=== PATIENT | female | born 1985 | race Caucasian/White ===

== ENCOUNTER 2019-02-18 05:27 | Inpatient (IN) | payer MEDICAID ==
[~2019-02-18] VITALS: Ht 162.6 cm; Wt 74.7 kg
[~2019-02-18 05:27] MED LIST: HYDR-3601 PO; IBUP800T48 PO; PNV11TAB PO
[2019-02-18 05:47] VITALS: BP 108/71; PULSE 71; RESP 18
[2019-02-18 06:04] VITALS: Ht 162.6 cm; Wt 74.7 kg
[2019-02-18] MEDS ORDERED: LACTATED RINGER'S 1,000 ML IV SCH (06:42)
[2019-02-18] MEDS ORDERED: CEFAZOLIN 2 GM/50 ML (PMX) 50 ML IVPB SCH (07:00)
[2019-02-18] MEDS ORDERED: CARBOPROST 250 MCG INJ IM PRN ×2 (07:00→12:30)
[2019-02-18] MEDS ORDERED: OXYTOCIN 30 UNITS/LR 500 ML IV PRN ×2 (07:00→12:30)
[2019-02-18] MEDS ORDERED: MISOPROSTOL 200 MCG TAB PR PRN ×2 (07:00→12:30)
[2019-02-18] MEDS ORDERED: METHYLERGONOVINE 0.2 MG INJ IM PRN ×2 (07:00→12:30)
--- NOTE | 2019-02-18 07:26 | PREAC ---
Date/Time of Note Date/Time of Note DATE: 02/18/19 TIME: 07:24 Anesthesia Eval and Record Evaluation Time Pre-Procedure Interview DATE: 02/18/19 TIME: 07:24 Age 33 Sex female NPO: 8 hrs Preoperative diagnosis IUP, twine Planned procedure Csection Past Medical History Past Medical History: Includes GI: Obesity : : Surgery & Anesthesia Issues No known issue Meds Anticoagulation: No Beta Jesse within 24 hr: No Reason Beta Jesse not given: Pt. not on B-Jesse Reported Medications [id number] ( 19) 1 Each Tablet, 1 TAB PO DAILY, TAB 02/18/19 Current Medications Lactated Ringer's 1,000 ml @ 125 mls/hr Q8H IV Last administered on 02/18/19at 06:25; Admin Dose 125 MLS/HR; Start 02/18/19 at 06:42 Cefazolin Sodium/ Dextrose 50 ml @ 100 mls/hr ONCE IVPB ; Start 02/18/19 at 07:00 Oxytocin/Lactated Ringer's 500 ml @ 125 mls/hr POST IV ; Start 02/18/19 at 07:00 Oxytocin/Lactated Ringer's 500 ml @ 0 mls/hr ONCE PRN IV .VAGINAL BLEEDING; Start 02/18/19 at 07:00 Methylergonovine Maleate (Methergine) 0.2 mg ONCE PRN IM .VAGINAL BLEEDING; Start 02/18/19 at 07:00 Carboprost Tromethamine (Hemabate) 250 mcg ONCE PRN IM .VAGINAL BLEEDING; Start 02/18/19 at 07:00 Misoprostol (Cytotec) 1,000 mcg ONCE PRN OK .VAGINAL BLEEDING; Start 02/18/19 at 07:00 Meds reviewed: Yes Allergies Coded Allergies: No Known Allergy (Unverified , 02/18/19) Allergies Reviewed: Yes Labs/Studies Labs Reviewed: Reviewed by anesthesiologist Result Diagram: 02/18/19 0625 Laboratory Tests 02/18/19 06:25 Blood Bank Test 02/18/19 06:25 Blood Type O POSITIVE Rh Immune Globulin Candidate NO test: Positive Studies: ECG Pre-procedure Exam Last vitals Vital Signs Date Temp Pulse Resp B/P (MAP) Pulse Ox O2 O2 Flow FiO2 Time Delivery Rate 02/18/19 98.5 71 18 108/71 Room Air 05:47 (83) Airway: Adequate mouth opening, Adequate thyromental dist Mallampati: Mallampati II Teeth: Normal Lung: Normal Heart: Normal ASA Physical Status ASA physical status: 3 Emergency: None Planned Anesthetic Neuraxial: Spinal Planned Pain Management Sub-arachniod narcotics, Parenteral pain med Pre-operative Attestations Prior to commencing anesthesia and surgery, the patient was re-evaluated, there was verification of: *The patient's identity *The results of appropriate recent lab work and preoperative vital signs *The above evaluation not changing prior to induction *Anesthetic plan, risk benefits, alternative and complications discussed with patient/family; questions answered; patient/family understands, accepts and wishes to proceed. RANDALL SHAH MD Feb 18, 2019 07:26
--- NOTE | 2019-02-18 07:37 | TRIAGE ---
OB Triage Datetime Report Generated by CPN: 02/18/2019 07:36 Datetime: 02/18/2019 07:15 Assessment Type: Admission Assessment Vaginal Bleeding: None Maternal Assessment Level of Consciousness: Keenly Alert, Responsive Headache: Denies Blurred Vision: No Respiratory Effort: Unlabored; Regular Rhythm; Equal Expansion Breath Sounds, Left: Clear and Equal Breath Sounds, Right: Clear and Equal Nausea/Vomiting: Denies RUQ Epigastric Pain: Denies Lower Extremities Edema: None Degree: None Upper Extremities Edema: None Degree: None Facial Edema: None Fall Risk Assessment History of Falling: (0) No Secondary Diagnosis: (0) No Ambulatory Aid: (0) Bedrest/Nurse Assist IV Therapy: (20) Yes (Annotations: INFUSING LR @ BOLUS RATE.) Gait: (0) Normal/Bedrest/Immobile Mental Status: (0) Oriented to Own Ability Fall Score: 20 Fall Risk Score Definition: No Risk: No action required Pain Assessment Pain Scale: 8 Pain Presence: Intermittent Pain Type: Contraction Pain Location: Abdomen Membrane Status: Ruptured Membranes Ruptured Date/Time: 02/18/2019 05:00 Datetime: 02/18/2019 07:00 Membranes Rupture Method: Spontaneous Datetime: 02/18/2019 05:55 Stage of : Labor Datetime: 02/18/2019 05:52 Time of Arrival: 02/18/2019 05:18 EGA: 35.5 Arrived By: Wheelchair Arrived From: Home Chief Complaint: SROM Movement: Present Contractions: Irregular Time Contractions Began: 02/17/2019 23:00 Contractions: Every 10 minutes Rupture of Membranes: Ruptured Vaginal Bleeding: None Vaginal Discharge: Denies Recent Sexual Intercouse: Denies Abdominal Trauma: Not Applicable Patient Complaints: Other Time Provider Notified: 02/18/2019 05:55 Provider Notified: Dr. Hooks Initial Plan: CEFM, VE Datetime: 02/18/2019 05:49 Vaginal Exam Dilatation (cms): 3.0 Effacement (%): 80 Station: -2 Exam By: Connie Handy RN Membrane Status: Ruptured Membranes Ruptured Date/Time: 02/18/2019 05:00 Vaginal Bleeding: None Cervix, Consistency: Soft Cervix, Position: Posterior Presentation 'A': Cephalic Datetime: 02/18/2019 05:47 Stage of : OB Triage Assessment Type: Triage Maternal Assessment Level of Consciousness: Keenly Alert, Responsive DTR's/Clonus: DTRs 2+; No Clonus Headache: Denies Blurred Vision: No Respiratory Effort: Unlabored; Regular Rhythm; Equal Expansion Breath Sounds, Left: Clear and Equal Breath Sounds, Right: Clear and Equal Nausea/Vomiting: Denies RUQ Epigastric Pain: Denies Lower Extremities Edema: None Degree: None Upper Extremities Edema: None Degree: None Facial Edema: None Temperature Route: Oral Fall Risk Assessment History of Falling: (0) No Secondary Diagnosis: (0) No Ambulatory Aid: (0) Bedrest/Nurse Assist IV Therapy: (0) No Gait: (0) Normal/Bedrest/Immobile Mental Status: (0) Oriented to Own Ability Fall Score: 0 Fall Risk Score Definition: No Risk: No action required Pain Assessment Pain Scale: 7 Pain Presence: Intermittent Pain Type: Cramping Pain Location: Abdomen Datetime: 02/18/2019 05:41 Stage of : OB Triage
[2019-02-18] MEDS ORDERED: OXYTOCIN 30 UNITS/LR 500 ML BAG IV ONE (07:46)
[2019-02-18] MEDS ORDERED: morphine SULFATE/PF (10 MG/10 ML) INJ ONE (07:46)
[2019-02-18] MEDS ORDERED: OXYTOCIN 10 UNIT INJ ONE (07:47)
[2019-02-18] MEDS ORDERED: ONDANSETRON 4 MG INJ ONE (07:47)
[2019-02-18] MEDS ORDERED: LACTATED RINGER'S 1,000 ML IV ONE (08:00)
--- NOTE | 2019-02-18 08:10 | HP ---
Date/Time of Note Date/Time of Note DATE: 02/18/19 TIME: 08:06 OB - History Hx of Present Free Text/Dictation 33 y.o. with a twin at 35w5d came in with spontaneous rupture of membranes and in active labor and an initial exam of 80%/3 cm. On US the twins are vtx/breech. Estimated Due Date: Mar 20, 2019 : 2 Para: 1 Care: Good Care Ultrasounds: Normal mid trimester US Obstetrical Complications: None Medical Complications: None Past Family/Social History * Past Medical, Surgical, Family and Obstetric Histories reviewed from chart. Blood Type: O+ Rubella: immune RPR/VDRL: Negative GBS Status: Unknown HBsAG: Negative OB Admission Exam Vital Signs Vital Signs Vital Signs Date Temp Pulse Resp B/P (MAP) Pulse Ox O2 O2 Flow FiO2 Time Delivery Rate 02/18/19 98.5 71 18 108/71 Room Air 05:47 (83) Physical Exam HEENT: WNL Heart: Rhythm Normal Lungs: Clear Abdomen: WNL Extremities: Normal Reflexes: Normal Cervical Dilatation: 3cm Effacement: Other (80%) Station: -2 Membranes: Ruptured Amniotic Fluid: Clear Heart Rate: 140's Accelerations: Accelerations Present Decelerations: No Decelerations Varibility: Moderate Contractions on Admission: 6-10 Minutes Apart Intensity: Moderate Last 72 hours Lab Results CBC & BMP 02/18/19 06:25 OB Assessment/Plan Reason for admission: active labor, section Other Assessment: Twins vertex/breech Plan: Section NUVIA MORTON MD Feb 18, 2019 08:10
[2019-02-18] MEDS ORDERED: PHENYLephrine 10 MG INJ ONE (08:18)
[2019-02-18] MEDS ORDERED: FENTAnyl 50 MCG/ML VIAL ONE (08:29)
[2019-02-18] MEDS ORDERED: MIDAZOLAM 1 MG/ML 2 ML INJ ONE (08:48)
--- NOTE | 2019-02-18 09:21 | PAC ---
Date/Time of Note Date/Time of Note DATE: 02/18/19 TIME: 09:20 Post-Anesthesia Notes Post-Anesthesia Note Last documented vital signs Vital Signs Date Temp Pulse Resp B/P (MAP) Pulse Ox O2 O2 Flow FiO2 Time Delivery Rate 02/18/19 98.5 71 18 108/71 Room Air 05:47 (83) Activity: WNL Respiratory function: WNL Cardiovascular function: WNL Mental status: Baseline Pain reasonably controlled: Yes Hydration appropriate: Yes Nausea/Vomiting absent: Yes Comments BP:112/56, P:78, Spo2:100%, T:98,9 RANDALL SHAH MD Feb 18, 2019 09:21
[2019-02-18] MEDS ORDERED: ONDANSETRON 4 MG INJ IV PRN (09:30)
[2019-02-18] MEDS ORDERED: DIPHENHYDRAMINE 50 MG INJ IV PRN (09:30)
[2019-02-18] MEDS ORDERED: NALOXONE (0.4 MG/ML) INJ IV PRN (09:30)
[2019-02-18] MEDS ORDERED: morphine 2 MG INJ IV PRN (09:30)
[2019-02-18] MEDS: OXYTOCIN 30 UNITS/LR 500 ML IV SCH ×4 (10:05→16:59)
[2019-02-18] MEDS ORDERED: LANOLIN HPA 1 PKT TOP PRN (12:30)
[2019-02-18] MEDS ORDERED: NACL 0.9% 3 ML SYG IV SCH (12:30)
[2019-02-18] MEDS ORDERED: HYDROCODONE/APAP (5/325) TAB PO PRN (12:30)
--- NOTE | 2019-02-18 13:12 | OPR ---
Operative Report Planned Procedure Free Text/Dictation Primary for IUP at 36 weeks, twins, spontaneous rupture of membranes, active labor, vertex/breech. Procedure date Feb 18, 2019 Procedure(s) Primary low transverse . Performed by see signature line Chess Instructor: DAKOTA DUTTON MD Anesthesiologist: RANDALL SHAH MD Pre-procedure diagnosis IUP at 36 weeks, , premature rupture of membranes, active labor, vertex/breech presentation. [id number] Anesthesia Type: Xpaay3e spinal Post-Procedure Post-procedure diagnosis Same Findings Twin A: baby boy weighing 2645 grams or 5# 13 oz, 19.5" long, and with Apgars of 8/9. Twin B: baby boy weighing 2880 grams or 6# 6 oz, 19" long, and with Apgars of 8/9. Estimated Blood Loss: 400 - 500 mls Specimen(s) none Grafts/Implant(s) none Complication(s) none Pt Condition post procedure: stable Disposition: PACU Procedure Description Under satisfactory spinal anesthesia, the patient was prepped and draped and placed in a supine position, tilted to the left. Pfannenstiel incision was made, carried through the subcutaneous tissue. Bleeders brought under control with electrocautery. Fascia incised to the length of the incision. Rectus muscles from the fascia, divided midline. Peritoneum exposed and entered manually and stretched open with the surgeon's hands. Transverse incision was made in the lower segment of the uterus. Amniotic sac ruptured. Clear amniotic fluid noted. Twin A was vertex and delivered using gentle fundal pressure to deliver the head and then the rest of the body. The mouth and nares were bulb suctioned. The cord was doubly clamped and cut after 30 seconds. The baby was brought to the warmer and the team for immediate attention. Twin B was breech but as the uterus had yet to contract I was able to turn the baby over and deliver it vertex, as I did the 1st baby. The mouth and nares were bulb suctioned. The cord was doubly clamped after 30 seconds and cut and the baby was brought to the warmer. Cord blood x 2 was collected. The placenta was delivered manually intact. Uterus was covered in a moist lap and the uterine cavity was cleaned with a dry lap. Uterus closed in 2 layers using #1 chromic in continuous fashion. Peritoneal cavity irrigated with warm saline. Sponge, needle and instrument count reported to be correct. Abdominal peritoneum closed with 2-0 Chromic continuously. Rectus muscle approximated with the same suture. Fascia closed with 0-Vicryl.from each lateral edge to midline with overlap at the midline. The subcutaneous tissue was irrigated and closed with 2-0 Chromic and skin was closed with 3-0 Monocryl in a subcuticular stitch. Steristrips with Mastosol were placed. Estimated blood loss 500 mL. Urine was clear. NUVIA MORTON MD Feb 18, 2019 13:11
[2019-02-18 15:45] VITALS: BP 107/64; PULSE 74; RESP 16
[2019-02-18] MEDS: KETOROLAC 30 MG INJ IV PRN ×2 (16:57→23:29)
[2019-02-18 17:30] VITALS: BP 107/64; PULSE 74; RESP 18
[2019-02-18 20:30] VITALS: BP 113/56; PULSE 77; RESP 18
[2019-02-19 00:05] VITALS: BP 106/56; PULSE 82; RESP 18
[2019-02-19 03:46] VITALS: BP 96/54; PULSE 80; RESP 17
[2019-02-19] MEDS: LACTATED RINGER'S 1,000 ML IV SCH ×3 (05:10→15:00)
[2019-02-19] MEDS: KETOROLAC 30 MG INJ IV PRN (05:16)
[2019-02-19 08:00] VITALS: BP 93/51; PULSE 69; RESP 18
[2019-02-19] MEDS: HYDROCODONE/APAP (5/325) TAB PO PRN ×3 (09:50→23:23)
--- NOTE | 2019-02-19 10:44 | QN ---
Documentation Comment POD #1 Pt doing well with adequate pain control. + and pumping. No N/V. Tolerating a regular diet. T=98.2 BP 96/54 Fundus is firm. Dressing is clean, dry and intact. Lochia minimal. Ext NT, no edema. WBC 15.9 Hgb 10.3 Plts 189K P: Continue care. Abdominal binder as requested. NUVIA MORTON MD Feb 19, 2019 10:44
[2019-02-19 12:00] VITALS: BP 97/57; PULSE 77; RESP 18
[2019-02-19] MEDS: IBUPROFEN 800 MG TAB PO SCH ×2 (13:37→21:55)
[2019-02-19 15:53] VITALS: BP 92/55; PULSE 84; RESP 18
[2019-02-19 20:20] VITALS: BP 101/56; PULSE 71; RESP 19
[2019-02-20] MEDS: LACTATED RINGER'S 1,000 ML IV SCH (01:49)
[2019-02-20 04:15] VITALS: BP 106/58; PULSE 60; RESP 19
[2019-02-20] MEDS: HYDROCODONE/APAP (5/325) TAB PO PRN ×3 (05:02→19:43)
[2019-02-20] MEDS: IBUPROFEN 800 MG TAB PO SCH ×3 (06:06→21:49)
[2019-02-20 08:00] VITALS: BP 112/67; PULSE 74; RESP 18
[2019-02-20 16:10] VITALS: BP 107/57; PULSE 87; RESP 18
[2019-02-20 20:00] VITALS: BP 104/68; PULSE 78; RESP 18
--- NOTE | 2019-02-20 21:21 | QN ---
Documentation Comment POD #2 Pt feels well and is ambulating. Took a shower this AM and the dressing was removed. Pt has only passed a very small amount of flatus and feels distended. No BM. On a regular diet. T= 97.9 BP 107/57 Abdomen somewhat distended and tympanic but not hard. Incision is clean, dry and intact. Loachia minimal Ext NT, no edema. P: Will repeat CBC in AM. Colace 200 mg BID, 1st dose now, and Mylicon now. Possible d/c in the AM. NUVIA MORTON MD Feb 20, 2019 21:21
[2019-02-20] MEDS: DOCUSATE SODIUM 100 MG CAP PO SCH (21:49)
[2019-02-21 03:52] VITALS: BP 106/57; PULSE 73; RESP 18
[2019-02-21] MEDS: IBUPROFEN 800 MG TAB PO SCH ×2 (06:38→14:00)
[2019-02-21 08:00] VITALS: BP 119/66; PULSE 73; RESP 18
[2019-02-21] MEDS ORDERED: DIPHTH/TET/ACEL PERTUSS (ADULT) 0.5 ML VIAL IM* ONE (09:00)
[2019-02-21] MEDS: DOCUSATE SODIUM 100 MG CAP PO SCH (10:30)
[2019-02-21] MEDS: HYDROCODONE/APAP (5/325) TAB PO PRN (12:38)
--- NOTE | 2019-02-21 13:58 | PD.PPDC ---
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 [id number] Patient Condition: Htihp8z Good Diet Wymlh5Le Diet: Noerz8e Resume Regular Diet Activity/Restrictions Blrie2Gb Activity: Enoni4b Bedrest May be up to bathroom May be up for meals May Shower Qddit1Mo Restrictions: Zzbxs4t No Exercising No Lifting No Driving Minimize Walking Minimize Stair-climbing No Sexual Activity Nothing in the Vagina No Ribera No Tampons, douche Wound/Drain Care Instructions Ucden3Nu Wound/Drain Care Tabvm5n Remove Steri Strips in 2 Instructions: weeks Keep clean and dry Follow-up Follow-up with Physician: 2, Week/Weeks Return to clinic for Khmxf2Ey 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
[2019-02-21] MEDS ORDERED: MAGNESIUM CITRATE 300 ML BTL PO ONE (14:00)
--- NOTE | 2019-02-21 14:02 | DS ---
Date/Time of Note Date/Time of Note DATE: 02/21/19 TIME: 14:00 Obstetrical Discharge Record Final Diagnosis Final Diagnosis: delivered Other Final Diagnosis Twins Section Section: Primary Primary Indication Twins, spontaneous rupture of membranes, active labor. Complications Multiple Gestation Augmentation: No Induction: No Rupture of Membranes: Yes Gestational Age at Rupture 35w 5d Condition on Discharge Physical Assessment Last Vitals: T=98 BP 119/66 Voiding: Yes Bowel Movement: No Breast: Filling Fundus: Firm Abdomen and Incision: Clean, dry and intact Calf Tenderness: No Patient Condition: Good NUVIA MORTON MD Feb 21, 2019 14:02
--- NOTE | 2019-02-22 17:21 | DELSUM ---
Delivery Summary A-C Datetime Report Generated by CPN: 02/22/2019 17:20 DELIVERY PERSONNEL Administrative Support Associate: Shannon Bean MATERNAL INFORMATION Delivery Anesthesia: Spinal Medications in Delivery: see anesthesia Delivery QBL (ml): 700 Placenta Cultured: No Maternal Complications: None RN Comments: EMERGENCY MANAGER: JOSHUA 2ND L_D RN: TARCANDY LABOR SUMMARY EDC: 03/20/2019 00:00 No. Babies in Womb: 2 Attempted: No Labor Anesthesia: None LABOR INFORMATION Reason for Induction: Not Applicable Onset of Labor: 02/18/2019 05:00 Group B Beta Strep: Done, Result Unknown Antibiotics # of Doses: 1 Antibiotics Time of Last Dose: 02/18/2019 08:03 Steroids Given: None Reason Steroids Not Administered: Not Applicable MEMBRANES Membranes Rupture Method: Spontaneous Rupture of Membranes: 02/18/2019 05:00 Length of Rupture (hr): 3.43 Amniotic Fluid Color: Clear Amniotic Fluid Amount: Moderate Amniotic Fluid Odor: Normal STAGES OF LABOR Stage 3 hr: 0 Stage 3 min: 4 Total Time in Labor hr: 3 Total Time in Labor min: 30 CSECTION DELIVERY Primary Indication: Multiple Gestation Other Primary Indication: TWIN B: BREECH PRESENTATION CSection Urgency: N/A CSection Incidence: Primary Labor: Labor Elective: Nonelective CSection Incision: Lower Uterine Transverse BABY A INFORMATION Delivery Date/Time: 02/18/2019 08:26 Method of Delivery: Born in Route : No : N/A Forceps: N/A Vacuum Extraction: N/A Shoulder Dystocia : N/A SHOULDER DYSTOCIA BABY A Delivery Date/Time: 02/18/2019 08:26 PRESENTATION/POSITION BABY A Presentation: Cephalic Cephalic Presentation: Vertex Breech Presentation: N/A PLACENTA INFORMATION BABY A Placenta Delivery Time : 02/18/2019 08:30 Placenta Method of Delivery: Manual Removal Placenta Status: Delivered SCORES BABY A Heart Rate 1 min: >100 bpm Resp Effort 1 min: Good Cry Reflex Irritability 1 min: Cough/Sneeze/Pulls Away Muscle Tone 1 min: Active Motion Color 1 min: Blue/Pale Resuscitation Effort 1 min: Tactile Stimulation SCORE 1 MIN: 8 Heart Rate 5 min: >100 bpm Resp Effort 5 min: Good Cry Reflex Irritability 5 min: Cough/Sneeze/Pulls Away Muscle Tone 5 min: Active Motion Color 5 min: Body [place], Extremit Blue Resuscitation Effort 5 min: Tactile Stimulation SCORE 5 MIN: 9 INFANT INFORMATION BABY A Gestational Age at Delivery: 35.5 Gestational Status: Late - 34- 36.6 Weeks Outcome : Liveborn, with signs of life Infant Condition : Stable Sex: Male IDENTIFICATION/MEDS BABY A ID Band Number: [id number] ID Band Location: Right Leg; Right Arm Sensor Applied: Yes Sensor Number: [id number] Sensor Location : Cord Clamp Vitamin K Given : Not Given Erythromycin Given: Not Given WEIGHT/LENGTH BABY A Birthweight (gm): 2645 Infant Weight (lb): 5 Weight (oz): 13 Length (in): 19.50 Length (cm): 49.53 CORD INFORMATION BABY A No. Cord Vessels: 3 Nuchal Cord : N/A Cord Blood Taken: Yes Suction: Mouth; Nose ASSESSMENT BABY A Infant Complications: None Physical Findings at Delivery: Within Normal Limits Infant Respirations: Appears Normal [place] [facility]/ALS Called : No Infant Care By: NICU team Transferred To: Remains with Mother BABY B INFORMATION Delivery Date/Time: 02/18/2019 08:28 Method of Delivery : Born in Route : No : N/A Forceps : N/A Vacuum Extraction: N/A Shoulder Dystocia : N/A SHOULDER DYSTOCIA BABY B Delivery Date/Time: 02/18/2019 08:28 PRESENTATION/POSITION BABY B Presentation : Cephalic Cephalic Position : Vertex Breech Position: N/A ROM/PLACENTA INFO BABY B Rupture of Membranes: 02/18/2019 05:00 Length of Rupture (hr): 3.47 Placenta Delivery Time : 02/18/2019 08:30 Placenta Method of Delivery: Manual Removal Placental Status : Delivered (Annotations: Data stored by [facility] on behalf of user) SCORES BABY B Heart Rate 1 min: >100 bpm Resp Effort 1 min: Good Cry Reflex Irritability 1 min: Cough/Sneeze/Pulls Away Muscle Tone 1 min: Active Motion Color 1 min: Blue/Pale Resuscitation Effort 1 min: Tactile Stimulation SCORE 1 MIN: 8 Heart Rate 5 min: >100 bpm Resp Effort 5 min: Good Cry Reflex Irritability 5 min: Cough/Sneeze/Pulls Away Muscle Tone 5 min: Active Motion Color 5 min: Body [place], Extremit Blue Resuscitation Effort 5 min: Tactile Stimulation SCORE 5 MIN: 9 INFORMATION BABY B Gestational Age at Delivery: 35.5 Gestational Status : Late - 34- 36.6 Weeks Outcome : Liveborn, with signs of life Infant Condition : Stable Infant Sex : Male IDENTIFICATION/MEDS BABY B ID Band Number : [id number] ID Band Location : Right Leg; Left Arm Sensor Number : [id number] Sensor Location : Cord Clamp Vitamin K Given : Not Given Erythromycin Given : Not Given WEIGHT/LENGTH BABY B Birthweight (gm): 2880 Infant Weight (lb) : 6 Infant Weight (oz): 6 Infant Length (in): 19.00 Infant Length (cm): 48.26 CORD INFORMATION BABY B No. Cord Vessels : 3 Nuchal Cord : N/A Cord Blood Taken : Yes Infant Suction : Mouth; Nose ASSESSMENT BABY B Complications : None Complications- Other: BREECH PRESENTATION, TURNED IN UTERO BY MD, JUST PRIOR TO DELIVERY Physical Findings at Delivery: Within Normal Limits Physical Findings- Other : SKIN TAG, RIGHT EAR Respirations : Appears Normal [place] [facility]/ALS Called : No Infant Care By : NICU team Transfer To: Remains with Mother
== END 2019-02-21 16:38 | disposition home or self-care (01) | DRG 788 ==
LOC: OBT 05:27 → L-D 05:33 → OBT 05:45 → L-D 05:45 → PP1 12:47
PROVIDERS: ADMIT Obstetrics & Gynecology; ATTEND Obstetrics & Gynecology
PROC: 3E033VJ Introduction of Other Hormone into Peripheral Vein, Percutaneous Approach (ICD-10-PCS; 2019-02-18)
PROC: 10D00Z1 Extraction of Products of Conception, Low, Open Approach (ICD-10-PCS; principal; 2019-02-18 08:30)
DX: O60.13X0 Preterm labor second trimester with preterm delivery third trimester, not applicable or unspecified (principal); O32.1XX2 Maternal care for breech presentation, fetus 2; O99.214 Obesity complicating childbirth; Z3A.35 35 weeks gestation of pregnancy; Z37.0 Single live birth; O30.003 Twin pregnancy, unspecified number of placenta and unspecified number of amniotic sacs, third trimester
CPT/HCPCS: 76815; 85025; 85610; 85730; 86592; 86850; 86900; 86901; 87340; 88307; 90715; 99464; G0463; J0690; J1885; J2250; J2274; J2370; J2405; J2590; J3010; J7120

== ENCOUNTER 2019-02-25 06:43 | Emergency (ER) | payer MEDICAID ==
[~2019-02-25] VITALS: Ht 160 cm; Wt 69.2 kg
[2019-02-25 06:49] VITALS: BP 122/62; PULSE 71; RESP 17; Ht 160 cm; Wt 69.2 kg
--- NOTE | 2019-02-25 07:20 | ERD ---
ER Documentation Chief Complaint Chief Complaint POST-OP PAIN S/P 1 WEEK AGO, NO DISCHARGE, NO REDNESS HPI 33-year-old female is here 1 week status post . She is complaining of waking up and having one episode of chills lasting only a few seconds and then resolved. She states she has had no fever. No vomiting. No change to her level of pain and states that her pain is normal as is been since she is had the . Has appointment with surgeon next week. ROS All systems reviewed and are negative except as per history of present illness. Medications Home Meds Active Scripts Ibuprofen* (Motrin*) 800 Mg Tab, 800 MG PO Q8, #30 TAB Prov:NUVIA MORTON MD 02/21/19 Hydrocodone Bit-Acetaminophen (Hydrocodone Bit-APAP) 5-325MG Tablet, 1 TAB PO Q4H PRN for .PAIN 4-6, #20 TAB Prov:NUVIA MORTON MD 02/21/19 Reported Medications [id number] ( 19) 1 Each Tablet, 1 TAB PO DAILY, TAB 02/18/19 Allergies Allergies: Coded Allergies: No Known Allergy (Unverified , 02/18/19) FmHx Family History: No diabetes Physical Exam Vitals Vital Signs Date Temp Pulse Resp B/P (MAP) Pulse Ox O2 O2 Flow FiO2 Time Delivery Rate 02/25/19 98.6 71 17 122/62 99 06:49 (82) Physical Exam Const: No acute distress Head: Atraumatic Eyes: Normal Conjunctiva ENT: Normal External Ears, Nose and Mouth. Neck: Full range of motion. No meningismus. Resp: Clear to auscultation bilaterally Cardio: Regular rate and rhythm, no murmurs Abd: Soft, non tender, non distended. Normal bowel sounds Skin: Healing surgical scar lower abdomen without any surrounding erythema or edema, no bleeding or drainage Procedures/MDM Patient had one episode of chills today. Her vitals are all normal she is well- appearing in no distress. She has no fever. Wound is healing appropriately with no evidence of infection. Patient can be safely discharged home with close follow-up with primary care doctor and surgeon. Return for any new or worsening symptoms including fever, increased pain, vomiting or any other concern. Patient counseled regarding my diagnostic impression and care plan. Prior to discharge all questions answered. Pt agrees with treatment plan and understands strict return precautions. Pt is instructed to follow up with primary care provider within 24-48 hours. Precautionary instructions provided including instructions to return to the ER if not improving or for any worsening or changing symptoms or concerns. Departure Diagnosis: Primary Impression: Chills Additional Impression: Visit for wound check Condition: Stable ORALIA RONQUILLO PA-C Feb 25, 2019 07:20
== END 2019-02-25 07:31 | disposition home or self-care (01) ==
LOC: FTE 06:43
DX: R68.83 Chills (without fever) (principal); Z48.01 Encounter for change or removal of surgical wound dressing
CPT/HCPCS: 99281